=== PATIENT | female | born 1960 | race Caucasian/White ===

== ENCOUNTER 2022-07-03 18:29 | Inpatient (IN) | payer BC, SELFPAY ==
[2022-07-03] VITALS (23 sets, daily range): BP systolic 117–134; BP diastolic 58–77; PULSE 61–81; RESP 16–22; TEMP 36.4; O2SAT 94–99; BMI 26.9
--- NOTE | ~2022-07-03 | CT_ITS ---
EXAMINATION: CT abdomen pelvis wo con DATE: 07/04/2022 18:53 INDICATION: Abdominal pain and diarrhea TECHNIQUE: Computed tomography (CT) of the abdomen and pelvis was performed without intravenous contr ast. Automated exposure control and iterative reconstruction technique were employed. The dose-length product was 387.25 mGy-cm. COMPARISON: None FINDINGS: Minimal peripheral smooth septal line thickening at the bilateral lung bases consistent with minimal pulmonary edema. Very small bilateral pleural effusions. Arch size is normal. No pericardial or pleur al effusion. Dependent predominant gradient of increasing density in the otherwise normal-appearing g allbladder suggesting layering sludge. Liver, spleen, pancreas, bilateral adrenal glands and kidneys are normal. Normal appendix. No abnormal bowel wall thickening or obstruction. There are scattered mi ld mesenteric edema throughout the abdomen and pelvis along with a very small amount of ascites in th e cul-de-sac and along the anterior margin of the liver. No abscess or free intraperitoneal gas. Ther e is diffuse mild wall thickening of the bladder with haziness to the immediately adjacent fat which is suspicious for cystitis. Anteverted uterus and bilateral adnexa are unremarkable. Tiny fat-contain ing umbilical hernia. No pathologically enlarged abdominal or pelvic lymphadenopathy. Mild lumbar spo ndylosis. IMPRESSION: 1. Nonspecific mild anasarca with mild pulmonary and mesenteric edema with very small bilateral pleur al effusions and very small amount of ascites. Reviewed, dictated and finalized at location A. ING ASSISTANT IMPRESSION: 1. Nonspecific mild anasarca with mild pulmonary and mesenteric edema with very small bilateral pleural effusions and very small amount of ascites.
--- NOTE | ~2022-07-03 | XR_ITS ---
EXAMINATION: XR knee LT 2V DATE: 07/03/2022 21:52 INDICATION: Rash over the entire body post recent left total knee replacement TECHNIQUE: AP and lateral views of the left knee were obtained. COMPARISON: None. FINDINGS: Left total knee arthroplasty with patellar resurfacing appears well seated in near-anatomic alignment . No periprosthetic lucency to suggest loosening or infection. No fracture. Small enthesophytes at th e proximal pole of the patella. No joint effusion. Soft tissues are unremarkable. IMPRESSION: 1. Expected appearance of a left total knee arthroplasty. No acute osseous abnormality. Reviewed, dictated and finalized at location A. AL EDUCATOR IMPRESSION: 1. Expected appearance of a left total knee arthroplasty. No acute osseous abno rmality.
[2022-07-03] MEDS: LACTATED RINGERS 1,000 ML 999 ML IV CONT (19:18)
--- NOTE | 2022-07-03 19:23 | PC.NURSE ---
Patient report received from JULIO CESAR Hanna. Assumed care of patient at this time.
[2022-07-03 19:24] LABS: Basophils Percent Auto 0.5 % (0.2-1.2); Hematocrit 47.9 % (37.0-47.0); Hemoglobin 16.1 g/dL (12.0-15.0); Immature Granulocyte Absolute 0.03 K/mm3 (0.00-0.031); Immature Granulocyte Percent A 0.5 % (0-0.5); Lymphocytes Absolute Auto 0.65 K/mm3 (0.9-3.2); Lymphocytes Percent Auto 10.4 % (18.3-44.2); Mean Corpuscular HGB Conc 33.6 g/dl (32-36); Mean Corpuscular Hemoglobin 29.6 pg (26-34); Mean Corpuscular Volume 88.1 fl (80-100); Mean Platelet Volume 9.9 fl (7.4-10.4); Monocytes Absolute Auto 0.3 K/mm3 (0.1-0.6); Neutrophils Absolute Auto 5.3 K/mm3 (1.3-6.7); Neutrophils Percent Auto 84.6 % (45.5-73.1); Platelet Count Result 321 k/mm3 (150-375); Red Blood Count 5.44 M/mm3 (4.2-5.4); White Blood Count 6.3 K/mm3 (4.5-10.0)
--- NOTE | 2022-07-03 19:25 | ED.ALLEREA ---
HPI - Allergic Reaction General Chief complaint: Allergic Reaction <CACHORRO Garcia Last Filed: 07/04/22 00:52> Stated complaint: Allergic Reaction <CACHORRO Garcia Last Filed: 07/04/22 00:52> Time Seen by Provider: 07/03/22 18:58 <CACHORRO Garcia Last Filed: 07/04/22 00:52> History of Present Illness HPI narrative: Patient is a 62-year-old female here for evaluation of a rash. Patient first developed a rash last week. She was seen by her PCP and was given prednisone and Benadryl. She presented to the ED the next day in [place] due to worsening symptoms and was diagnosed with an allergic reaction, she received Decadron, Pepcid and Benadryl without relief. She was then given epi in the ED with improvement of her symptoms. Patient states that she was doing well until 3 days ago when the rash returned. She notes facial swelling around her eyelids and lips, swelling of her hands and feet, diffuse rash across her entire body, most notably over her flanks and abdomen. The rash is itchy and not painful. Patient did have numerous episodes of vomiting and diarrhea today; unable to tolerate PO, which prompted ED eval. She denies any fever, chills. She is unsure what she is allergic to, denies exposure to new medications. She did have a massage prior to onset of rash. <CACHORRO Garcia Last Filed: 07/04/22 00:52> Related Data Home medications: Home Medications Medication Instructions Recorded Confirmed levothyroxine 88 mcg tablet 88 mcg PO QAM 07/03/22 07/03/22 (Synthroid) <CACHORRO Garcia Last Filed: 07/04/22 00:52> Allergies/adverse reactions: Allergies Allergy/AdvReac Type Severity Reaction Status Date / Time amoxicillin Allergy Rash Verified 07/03/22 18:36 sulfamethoxazole Allergy Rash Verified 07/03/22 18:36 [From Bactrim] trimethoprim [From Bactrim] Allergy Rash Verified 07/03/22 18:36 <CACHORRO Garcia Last Filed: 07/04/22 00:52> Review of Systems Review of Systems: Gen.: Denies fevers or chills Eyes: Denies eye pain or visual change ENT: Denies congestion Respiratory: Denies shortness of breath or cough CV: Denies chest pain or palpitations GI: Reports nausea and vomiting. Denies abdominal pain or diarrhea denies burning, urgency, frequency or hematuria Musculoskeletal: Denies back pain or muscle pain Neuro: Denies numbness, tingling, weakness or focal weakness Skin: Reports rash Except as documented, all other systems reviewed and negative <Reshma Clark PA-C - Last Filed: 07/04/22 00:52> [facility] Past Medical History Medical History: Medical History Hypothyroidism (acquired) <CACHORRO Garcia Last Filed: 07/04/22 00:52> Surgical History Surgical History: Surgical History H/O section History of total left knee replacement S/P tonsillectomy and adenoidectomy <Reshma Clark PA-C - Last Filed: 07/04/22 00:52> Family History Family History: Family History Father Cancer Liver disease Mother Cancer <Reshma Clark PA-C - Last Filed: 07/04/22 00:52> Social History Social History: Social History (Updated 07/03/22 @ 22:41 by Cat Mccullough NP) Social History: The patient is and has 2 children. She seldom drinks alcohol. She has never smoked. She is a retired cardiac cath technician. Her is the durable power pathology specialist for healthcare. The patient resides in [place]. Code status full code. Smoking status: Never smoker Alcohol intake: current Drinks per week: 1 Substance use: never Lack of Transportation: No Lack of Food: Never True Current Housing: I Have Housing Concerned About Future Housing: No Diff
[2022-07-03 19:34] LABS: Chloride 99 mmol/L (98-107)
[2022-07-03 19:42] LABS: Alanine Aminotransferase 26 U/L (6-35); Albumin Level 3.8 g/dL (3.5-5.1); Alkaline Phosphatase 75 U/L (38-126); Anion Gap 5 mmol/L (8-16); Aspartate Amino Transferase 32 U/L (14-36); Bilirubin,Total 0.9 mg/dL (0.2-1.3); Blood Urea Nitrogen 21 mg/dL (7-17); CRP 6.9 mg/dL (<1.0); Calcium 8.3 mg/dL (8.4-10.2); Carbon Dioxide 29 mmol/L (22-30); Estimated CRCL calculation 43 ml/min; Estimated Glomerular Filt Rate 56; Glucose 130 mg/dL (65-110); Magnesium 1.7 mg/dL (1.6-2.3); Potassium 3.9 mmol/L (3.4-5.0); Sodium 133 mmol/L (137-145)
[2022-07-03 19:58] LABS: Erythrocyte Sedimentation Rate 1 mm/hr (0-20)
[2022-07-03 20:15] LABS: INR 1.1; Prothrombin Time 13.6 Seconds (11.1-14.7)
[2022-07-03 20:16] LABS: Partial Thromboplastin Time 26.2 SECONDS (22.3-36.8)
[2022-07-03] MEDS: DEXAMETHASONE SOD PHOS INJ 4 MG/ML VIAL IV PUSH (20:52)
[2022-07-03] MEDS: SODIUM CHLORIDE 0.9% IV 1,000 ML 999 ML IV CONT (20:53)
[2022-07-03] MEDS: diphenhydrAMINE HCl INJ 50 MG/ML VIAL 25 MG IV PUSH (20:53)
[2022-07-03] MEDS: ONDANSETRON INJ 4 MG/2 ML VIAL IV PUSH (21:08)
--- NOTE | 2022-07-03 21:20 | PM.IMHP ---
H&P: HPI History of Present Illness Date/Time: 07/03/22 21:20 Chief Complaint: Urticaria Narrative: This is a 62-year-old female patient who came to the emergency room for evaluation of a rash. The patient stated she 1st developed a rash last week. She was seen in the emergency room yesterday in [place] and has been on prednisone and was taking Benadryl. She stated she is also taking Pepcid. The patient stated that she does not have a sore throat but has had a dry ET throat for 3 days. The patient was given Decadron Pepcid and Benadryl without relief. She was given epinephrine in the ED on the without improvement of her symptoms. The patient stated she recently had a massage and he use some type of oil which may have caused her have an allergic reaction. She also tried a new deodorant. She has no fever or chills. She has not eaten anything differently than what she typically eats. In our emergency room today she was given lactated Ringer's, Zofran, Decadron, Benadryl, normal saline, and Zofran. X-ray of the left knee expected appearance of left total knee arthroplasty. No acute osseous abnormality. The patient recently had a left total knee arthroplasty a couple months ago. The patient stated that it has been warm since her surgery. H&H is 16.1 and 47.9. Neutrophils are elevated to 84.6. Sodium is 133. BUN 21 creatinine is normal. GFR is 56 glucose is 130. CRP is 6.9. Influenza a B and COVID are all negative and group a strep are pending. The patient is being admitted to observation status on the date of service of 07/03/2022. Review of Systems Review of Systems: See HPI All systems reviewed & are unremarkable except as noted in HPI and below Constitutional: Constitutional: Reports as per HPI and Reports no additional constitutional complaints Eyes: Eyes: Reports as per HPI and Reports no additional eye complaints ENT: Reports system reviewed and no additional complaints, except as documented and Reports Normal hearing present Cardiovascular: Cardiovascular: Reports no additional cardiovascular complaints Respiratory: Respiratory: Reports no additional respiratory complaints and Reports no additional respiratory complaints Gastrointestinal: Gastrointestinal: Reports as per HPI and Reports no additional gastrointestinal complaints Musculoskeletal: Musculoskeletal: Reports no additional musculoskeletal complaints Integumentary/Breasts: Skin/Breast: Reports system reviewed and no additional complaints, except as docu and Reports as per HPI Neurologic: Reports system reviewed and no additional complaints, except as documented, Reports as per HPI and Reports Normal hearing present Psychiatric: Psychiatric: Reports no additional psychiatric complaints and Reports as per HPI Endocrine: Endocrine: Reports no additional endocrine complaints Hematologic/Lymphatic: Hematologic/Lymphatic: Reports no additional hematologic/lymphatic complaints Allergic/Immunologic: Allergic/Immunologic: Reports no additional allergic/immunologic complaints PMFSH Past Medical History Medical History Hypothyroidism (acquired) Surgical History Surgical History H/O section History of total left knee replacement S/P tonsillectomy and adenoidectomy Family History Family History Father Cancer Liver disease Mother Cancer Social History Social History (Updated 07/03/22 @ 22:41 by Cat Mccullough NP) Social History: The patient is and has 2 children. She seldom drinks alcohol. She has never smoked. She is a retired environmental field technician. Her is the durable power photonics technician for healthcare. The patient resides in [place]. Code status full code. Smoking status: Never smoker Meds Home Medications and Allergies Allergies Allerg
[2022-07-03 22:13] LABS: Influenza A QL RT-PCR Negative (Negative); Influenza B QL RT-PCR Negative (Negative); SARS-CoV-2 RNA PCR Negative
--- NOTE | 2022-07-03 22:14 | PC.NURSE ---
Yamilex Tobias, patients family member leaves cell number of [phone] to call with updates. This nurse informed her of visiting hours and patients room number.
--- NOTE | 2022-07-03 22:25 | PC.NURSE ---
Attempted to call report at 0811, stated will call back.
--- NOTE | 2022-07-03 22:33 | PC.NURSE ---
2232 Attempted to call report again, informed RN will call back.
[2022-07-03 22:58] LABS: Strep Group A RT-PCR NOT DETECTED (Negative)
[2022-07-03] MEDS: methylPREDNISolone SOD SUCC 125 MG VIAL IV PUSH (23:12)
[2022-07-03] MEDS: SODIUM CHLORIDE 0.9% IV 1,000 ML 150 ML IV CONT (23:12)
[2022-07-03] MEDS: MAGNESIUM SULF 1 GM/D5W 100 ML 1 GM/100 ML BAG IVPB (23:12)
[2022-07-04] MEDS: diphenhydrAMINE HCl INJ 50 MG/ML VIAL IV PUSH ×2 (01:49→20:35)
[2022-07-04] MEDS: methylPREDNISolone SOD SUCC 125 MG VIAL 60 MG IV PUSH ×4 (05:37→23:04)
[2022-07-04 05:59] LABS: Basophils Percent Auto 0.2 % (0.2-1.2); Hematocrit 41.4 % (37.0-47.0); Hemoglobin 13.9 g/dL (12.0-15.0); Immature Granulocyte Absolute 0.02 K/mm3 (0.00-0.031); Immature Granulocyte Percent A 0.4 % (0-0.5); Lymphocytes Absolute Auto 0.51 K/mm3 (0.9-3.2); Lymphocytes Percent Auto 9.3 % (18.3-44.2); Mean Corpuscular HGB Conc 33.6 g/dl (32-36); Mean Corpuscular Hemoglobin 29.6 pg (26-34); Mean Corpuscular Volume 88.1 fl (80-100); Mean Platelet Volume 9.9 fl (7.4-10.4); Monocytes Absolute Auto 0.1 K/mm3 (0.1-0.6); Neutrophils Absolute Auto 4.8 K/mm3 (1.3-6.7); Neutrophils Percent Auto 88.1 % (45.5-73.1); Platelet Count Result 293 k/mm3 (150-375); Red Cell Distribution Width 12.6 % (11.5-14.5); White Blood Count 5.5 K/mm3 (4.5-10.0)
[2022-07-04 06:00] VITALS: BP 117/65; PULSE 76; RESP 16; TEMP 36.7; O2SAT 97
[2022-07-04 06:04] LABS: Lactic Acid Reflex 1.2 mmol/L (0.7-2.0)
[2022-07-04 06:07] LABS: Alanine Aminotransferase 21 U/L (6-35); Albumin Level 2.9 g/dL (3.5-5.1); Alkaline Phosphatase 54 U/L (38-126); Anion Gap 2 mmol/L (8-16); Aspartate Amino Transferase 25 U/L (14-36); Bilirubin,Total 0.5 mg/dL (0.2-1.3); Blood Urea Nitrogen 17 mg/dL (7-17); CRP 6.5 mg/dL (<1.0); Calcium 7.2 mg/dL (8.4-10.2); Carbon Dioxide 26 mmol/L (22-30); Chloride 102 mmol/L (98-107); Estimated CRCL calculation 53 ml/min; Estimated Glomerular Filt Rate > 60; Glucose 148 mg/dL (65-110); Potassium 3.7 mmol/L (3.4-5.0); Sodium 130 mmol/L (137-145)
[2022-07-04 06:40] LABS: Thyroid Stimulating Hormone Reflex 0.148 uIU/mL (0.465-4.68)
[2022-07-04 07:26] LABS: Free T4 Free Thyroxine Reflex 1.12 ng/dL (0.78-2.19)
[2022-07-04] MEDS: FAMOTIDINE 20 MG/2 ML VIAL IV PUSH ×2 (09:00→20:32)
[2022-07-04 09:30] LABS: Total Triiodothyronine (T3) 0.59 NG/ML (0.97-1.69)
[2022-07-04] MEDS: ONDANSETRON INJ 4 MG/2 ML VIAL IV PUSH (09:51)
[2022-07-04] MEDS: MORPHINE SULFATE (*CRX) 2 MG/ML INJ IV PUSH (12:16)
--- NOTE | 2022-07-04 13:21 | PM.IMPN ---
Progress Note: A&P Assessment and Plan (1) Rash of unknown cause: Code(s): R21 - Rash and other nonspecific skin eruption Status: Acute Assessment and Plan: Diffuse, reticular-lacy confluent rash, present on admission with associated facial/orbital swelling, abdominal pain and diarrhea. Appears to be secondary to immune-mediated allergic reaction given cutaneous and GI complaints. May be secondary to essential oils, new deodorant but etiology is not clear. No new medications taken. This may be secondary to an underlying autoimmune. Continue systemic steroids and add IV antihistamine BID. continue pepcid IV BID. WBC within normal limits. Afebrile. Blood cultures were drawn on admission and pending. CRP mildly elevated 6.5 Rapid strep negative. Does not appear to be related to bacterial infection. Hold antibiotics. may need to see a oyster bed worker outpatient elizalde. (2) Facial swelling: Code(s): R22.0 - Localized swelling, mass and lump, head Status: Acute Assessment and Plan: No respiratory compromise, stridor, wheezing, or hot potato voice. Presumed secondary to above. Continue systemic steroids and IV antihistamines. (3) Diarrhea: Code(s): R19.7 - Diarrhea, unspecified Status: Acute Assessment and Plan: with associated abdominal pain, diffuse; she has nausea but no emesis. CT abd/pelvis pending. Send stool cultures. No recent antibiotic use, but will check Cdiff culture. No known sick contacts. (4) Hypothyroidism (acquired): Code(s): E03.9 - Hypothyroidism, unspecified Status: Chronic Assessment and Plan: -continue levothyroxine and check thyroid level. TSH low, free T4 within normal limits, TT3 mildly low. Time Spent With Patient Time with patient: 15 - 25 minutes Subjective Date/time seen: 07/04/22 13:21 She reports that her eyes and face feel puffier today. She has mucous in her throat, but denies difficulty handling secretions, throat or tongue swelling, hot potato voice. The rash to her abdomen, anterior chest, and back is improving, however, she still has the rash to her arms, both thighs and feet. It is pruritic, but not painful. She has increased redness to both eyes. Additionally, she reports abdominal pain, nausea and diarrhea since Tuesday. No vision changes, pain with eye movements, joint pain, vomiting, or dysuria. No skin sloughing. She denies new medications, herbal supplements, sick contacts, new foods. She is active outdoors, but denies tick or insect bites. Her new deodorant is a natural, herbal preparation. Review of Systems Review of Systems: All systems reviewed & are unremarkable except as noted in HPI and below Exam Narrative: General: Mildly anxious appearing, older adult female lying in bed. HEENT: Normocephalic. Atraumatic. Sclera with red peripheral injection, right sclera edema, pupils equal and round. Slight maguire-like facies with edematous orbital lids. Mucous membranes dry. Oropharynx unremarkable and without lesions. Hearing intact. nares patent. Skin: Warm and dry. Lacy-reticular shaped lesions to bilateral anterior & posterior arms, anterior bilateral thighs, dorsal surface to bilateral feet, improving anterior and posterior trunk lesions. All lesions blanching. lesions pruritic. ? Neck: Supple. No lymphadenopathy. Trachea midline. No JVD. Heart: S1 and S2 regular rate and rhythm. No murmurs, gallops, or rubs auscultated. Chest: Respirations even and unlabored. Lung sounds are clear to auscultation in all lobes bilaterally without wheezes, rhonchi, or rales. No stridor. Abdomen: Soft, round and diffuse tenderness to palpation.? Bowel sounds present in all 4 quadrants. Extremities:? Grossly normal ROM all extremities. No edema, erythema or calf tenderness. Left healed TKA incision without drainage, redness or edema. Radial and dorsalis pedis pulses +2 bilaterally. Neurological: No focal deficits. Cranial nerves
[2022-07-04 14:00] VITALS: BP 111/59; PULSE 64; RESP 16; TEMP 36.2; O2SAT 96
[2022-07-04] MEDS: KCL 20MEQ/0.9% SOD CHL 1,000 ML 100 ML IV CONT (15:26)
[2022-07-04] MEDS: diphenhydrAMINE HCl INJ 50 MG/ML VIAL 25 MG IV PUSH (17:02)
[2022-07-04 20:14] VITALS: BP 133/63; PULSE 68; RESP 18; TEMP 36.9; O2SAT 94
[2022-07-04] MEDS: FUROSEMIDE INJ 40 MG/4 ML VIAL 10 MG IV PUSH (20:54)
[2022-07-05] MEDS: LEVOTHYROXINE SODIUM 88 MCG TABLET PO (05:01)
[2022-07-05] MEDS: methylPREDNISolone SOD SUCC 125 MG VIAL 60 MG IV PUSH ×3 (05:01→18:27)
[2022-07-05 05:21] VITALS: BP 120/71; PULSE 70; RESP 18; TEMP 36.6; O2SAT 94
[2022-07-05 05:32] LABS: Basophils Percent Auto 0.1 % (0.2-1.2); Hematocrit 38.9 % (37.0-47.0); Hemoglobin 12.7 g/dL (12.0-15.0); Immature Granulocyte Absolute 0.03 K/mm3 (0.00-0.031); Immature Granulocyte Percent A 0.4 % (0-0.5); Lymphocytes Absolute Auto 0.57 K/mm3 (0.9-3.2); Lymphocytes Percent Auto 8.4 % (18.3-44.2); Mean Corpuscular HGB Conc 32.6 g/dl (32-36); Mean Corpuscular Hemoglobin 28.9 pg (26-34); Mean Corpuscular Volume 88.4 fl (80-100); Mean Platelet Volume 9.8 fl (7.4-10.4); Monocytes Absolute Auto 0.2 K/mm3 (0.1-0.6); Neutrophils Absolute Auto 5.9 K/mm3 (1.3-6.7); Neutrophils Percent Auto 88.1 % (45.5-73.1); Platelet Count Result 285 k/mm3 (150-375); Red Cell Distribution Width 12.9 % (11.5-14.5); White Blood Count 6.8 K/mm3 (4.5-10.0)
[2022-07-05 05:54] LABS: Alanine Aminotransferase 23 U/L (6-35); Albumin Level 2.9 g/dL (3.5-5.1); Alkaline Phosphatase 52 U/L (38-126); Anion Gap 3 mmol/L (8-16); Aspartate Amino Transferase 24 U/L (14-36); Bilirubin,Total 0.4 mg/dL (0.2-1.3); Blood Urea Nitrogen 21 mg/dL (7-17); CRP 3.9 mg/dL (<1.0); Calcium 7.6 mg/dL (8.4-10.2); Carbon Dioxide 25 mmol/L (22-30); Chloride 102 mmol/L (98-107); Estimated CRCL calculation 44 ml/min; Estimated Glomerular Filt Rate 50; Glucose 142 mg/dL (65-110); Potassium 3.8 mmol/L (3.4-5.0); Sodium 130 mmol/L (137-145)
[2022-07-05 06:38] LABS: Erythrocyte Sedimentation Rate 5 mm/hr (0-20)
[2022-07-05 08:10] LABS: Toxigenic C. Diff NEGATIVE (NEGATIVE)
[2022-07-05] MEDS: diphenhydrAMINE HCl INJ 50 MG/ML VIAL 25 MG IV PUSH (08:35)
[2022-07-05] MEDS: FAMOTIDINE 20 MG/2 ML VIAL IV PUSH ×2 (08:35→20:44)
--- NOTE | 2022-07-05 11:30 | PM.IMPN ---
Progress Note: A&P Assessment and Plan (1) Allergic reaction: Qualifiers: Encounter type: initial encounter Qualified Code(s): T78.40XA - Allergy, unspecified, initial encounter Code(s): T78.40XA - Allergy, unspecified, initial encounter Status: Acute Assessment and Plan: Severe, systemic allergic reaction to unknown cause without anaphylaxis Diffuse, reticular-lacy confluent rash, present on admission with associated facial/orbital swelling, abdominal pain and diarrhea. Likely secondary to immune-mediated allergic reaction given cutaneous and GI complaints. May be secondary to essential oils, new deodorant but etiology is not clear. No new medications taken. Improving on steroids and antihistamines. Continue IV solu-medrol and increased IV benadryl 50 mg BID for additional 24-48 hours before transitioning to oral medications as she was on these medications prior to admission and her symptoms worsened . continue pepcid IV BID. WBC within normal limits. Afebrile. Blood cultures negative to date. Does not appear to be related to bacterial infection. Hold antibiotics. CRP mildly elevated 6.5 on admission and trending down 3.9 Rapid strep negative. Consider outpatient allergy testing after discharge. Patient is from [place] and we discussed finding a Ob Tech near her home. She should be discharged on prednisone taper and Epi pen. (2) Rash of unknown cause: Code(s): R21 - Rash and other nonspecific skin eruption Status: Acute Assessment and Plan: As above. Add hydrocortisone 1% cream for pruritus. (3) Facial swelling: Code(s): R22.0 - Localized swelling, mass and lump, head Status: Acute Assessment and Plan: No respiratory compromise, stridor, wheezing, or hot potato voice. Presumed secondary systemic allergic reaction and improving. Add refresh eye drops. (4) Diarrhea: Qualifiers: Diarrhea type: unspecified type Qualified Code(s): R19.7 - Diarrhea, unspecified Code(s): R19.7 - Diarrhea, unspecified Status: Acute Assessment and Plan: with associated abdominal pain, diffuse; she has nausea but no emesis. CT abd/pelvis shows no acute intra-abdominal infection. mild ascites/anasarca, mild pulmonary and mesenteric edema that would be consistent with systemic allergic reaction and vascular permeability. Cdiff negative. stool cultures and O&P pending. No known sick contacts or new foods. (5) Hypothyroidism (acquired): Code(s): E03.9 - Hypothyroidism, unspecified Status: Chronic Assessment and Plan: -continue levothyroxine and check thyroid level. TSH low, free T4 within normal limits, TT3 mildly low. Plan Continue IV medications x 24-48 hours until more significant improvement, then transition to PO at discharge. Time Spent With Patient Time with patient: 25 - 35 minutes (>50% time spent discussing plan of care and answering patient/family questions) Subjective Date/time seen: 07/05/22 11:30 Interval history: She feels a little better today. The rash is still present and widespread; it is more prominent after applying lotion, per daughter, and still pruritic. She had some loose stool and abdominal cramping after eating today. She still has facial swelling that is somewhat improved, but still significantly edmatous. No nausea, vomiting, tongue swelling, drooling, vision changes, pain with eye movements, difficulty breathing or wheezing. Review of Systems Review of Systems: All systems reviewed & are unremarkable except as noted in HPI and below Exam Narrative: General: No acute distress. Lying in bed. HEENT: Sclera with red injection, right sclera edema improving, pupils equal and round. improving facial edema and swelling to orbital lids. Mucous membranes dry. Oropharynx unremarkable and without lesions. Hearing intact. nares patent. Skin: Warm and dry. Resolved reticular appearance t
[2022-07-05] MEDS: ARTIFICIAL TEARS OPHTH SOLN 15 ML BOTTLE 1 DROP EACH EYE ×3 (12:27→20:44)
[2022-07-05 14:00] VITALS: BP 133/64; PULSE 64; RESP 16; TEMP 36.8; O2SAT 94
[2022-07-05] MEDS: diphenhydrAMINE HCl INJ 50 MG/ML VIAL IV PUSH ×2 (18:27→20:44)
[2022-07-05 20:23] VITALS: BP 121/62; PULSE 65; RESP 18; TEMP 37.2; O2SAT 94
[2022-07-05] MEDS: HYDROCORTISONE 1% 30 GM CREAM 1 APPLIC TOPICAL (20:44)
[2022-07-06] MEDS: methylPREDNISolone SOD SUCC 125 MG VIAL 60 MG IV PUSH ×3 (00:32→13:42)
[2022-07-06 04:28] VITALS: BP 120/65; PULSE 88; RESP 18; TEMP 36.1; O2SAT 93
[2022-07-06] MEDS: LEVOTHYROXINE SODIUM 88 MCG TABLET PO (05:59)
[2022-07-06 06:09] LABS: Hematocrit 34.2 % (37.0-47.0); Hemoglobin 11.4 g/dL (12.0-15.0); Mean Corpuscular HGB Conc 33.3 g/dl (32-36); Mean Corpuscular Hemoglobin 29.3 pg (26-34); Mean Corpuscular Volume 87.9 fl (80-100); Mean Platelet Volume 9.6 fl (7.4-10.4); Platelet Count Result 222 k/mm3 (150-375); Red Blood Count 3.89 M/mm3 (4.2-5.4); Red Cell Distribution Width 12.8 % (11.5-14.5); White Blood Count 5.7 K/mm3 (4.5-10.0)
[2022-07-06 06:20] LABS: Chloride 99 mmol/L (98-107)
[2022-07-06 06:33] LABS: Anion Gap 3 mmol/L (8-16); Blood Urea Nitrogen 21 mg/dL (7-17); Calcium 7.5 mg/dL (8.4-10.2); Carbon Dioxide 27 mmol/L (22-30); Estimated CRCL calculation 53 ml/min; Estimated Glomerular Filt Rate > 60; Glucose 163 mg/dL (65-110); Magnesium 2.3 mg/dL (1.6-2.3); Potassium 3.5 mmol/L (3.4-5.0); Sodium 129 mmol/L (137-145)
[2022-07-06] MEDS: ARTIFICIAL TEARS OPHTH SOLN 15 ML BOTTLE 1 DROP EACH EYE ×2 (08:48→13:43)
[2022-07-06] MEDS: FAMOTIDINE 20 MG/2 ML VIAL IV PUSH (08:49)
[2022-07-06] MEDS: diphenhydrAMINE HCl INJ 50 MG/ML VIAL IV PUSH (08:49)
[2022-07-06 13:27] LABS: Alanine Aminotransferase 80 U/L (6-35); Albumin Level 2.7 g/dL (3.5-5.1); Alkaline Phosphatase 50 U/L (38-126); Aspartate Amino Transferase 77 U/L (14-36); Bilirubin,Total 0.3 mg/dL (0.2-1.3)
--- NOTE | 2022-07-06 14:54 | PM.DS ---
DS: Admitting Diagnosis Discharge Date 07/06/2022 1454 Admitting Diagnosis Erythema multiforme DS: Discharge Diagnosis Discharge Diagnosis (1) Allergic reaction: Qualifiers: Encounter type: initial encounter Qualified Code(s): T78.40XA - Allergy, unspecified, initial encounter Code(s): T78.40XA - Allergy, unspecified, initial encounter Status: Acute Assessment and Plan: Severe, systemic allergic reaction to unknown cause without anaphylaxis. Diffuse, reticular-lacy confluent rash, present on admission with associated facial/orbital swelling, abdominal pain and diarrhea. Likely secondary to immune-mediated allergic reaction given cutaneous and GI complaints. May be secondary to essential oils, new deodorant but etiology is not clear. No new medications taken. Treated with IV solumedrol Q6 hours and IV benadryl 50 mg BID and PRN for 48 hours Treated with pepcid IV BID. WBC within normal limits. Afebrile. Blood cultures negative to date. Does not appear to be related to bacterial infection. No antibiotics given. CRP mildly elevated 6.5 on admission and trended down by discharge. Rapid strep negative. Consider outpatient allergy testing after discharge. Patient is from [place] and we discussed finding a Manufacturing Weaver near her home. She should be discharged on prednisone taper 60 mg x 2 days, 50 mg x 2 days, 40 mg x 2 days, 30 mg x 2 days, 20 mg x 2 days, 10 mg x 2 days, then stop and benadryl 50 mg PO BID to TID Discharged with Epi pen. (2) Rash of unknown cause: Code(s): R21 - Rash and other nonspecific skin eruption Status: Acute Assessment and Plan: As above. Added hydrocortisone 1% cream for pruritus minimally effective, however. (3) Facial swelling: Code(s): R22.0 - Localized swelling, mass and lump, head Status: Acute Assessment and Plan: No respiratory compromise, stridor, wheezing, or hot potato voice. Presumed secondary systemic allergic reaction and improving. Added refresh eye drops for dry eyes (4) Diarrhea: Qualifiers: Diarrhea type: unspecified type Qualified Code(s): R19.7 - Diarrhea, unspecified Code(s): R19.7 - Diarrhea, unspecified Status: Acute Assessment and Plan: with associated abdominal pain, diffuse; she has nausea but no emesis. CT abd/pelvis shows no acute intra-abdominal infection. mild ascites/anasarca, mild pulmonary and mesenteric edema that would be consistent with systemic allergic reaction and vascular permeability. Cdiff negative. stool cultures- e.coli, salmonella, campylobacter, cryptospiridium, and giardia negative. O&P negative. No known sick contacts or new foods. (5) Hypothyroidism (acquired): Code(s): E03.9 - Hypothyroidism, unspecified Status: Chronic Assessment and Plan: -continue levothyroxine and check thyroid level. TSH low, free T4 within normal limits, TT3 mildly low. Likely secondary to acute illness. Repeat thyroid panel in 4 weeks after systemic illness resolved. DS: Summary Hospital Course Reason for hospitalization: [facility] Course: Hilda Tobias is a 62-year-old female patient who presented to the emergency room for evaluation of a whole body rash, which developed the week prior to admission.? She was seen in the emergency room in [place] 24 hours prior and prescribed PO prednisone, Benadryl, and Pepcid.? Her symptoms did not improve on oral medications, prompting her visit. She denied sore throat, but endorsed dry throat for 3 days.? She was also given epinephrine in the ED on the 07/02/22 without improvement of her symptoms.? She reported massage with unknown type of oil 1-2 days prior to symptoms.? She also tried a new natural deodorant.? She denied fever or chills.? No new medications or foods. In our emergency room, her vitals were stable. CBC, CMP were unremarkable. CRP was mildly elevated 6.9. Influenza A/B, COVID19, and
== END 2022-07-06 15:40 | disposition home or self-care (01) | DRG 916 ==
LOC: ANHED 20:54 → ANH3MED 22:12
PROVIDERS: Nurse Practitioner; Physician Assistant; Admitting Provider Internal Medicine; Emergency Provider Emergency Medicine; Visit Provider Nurse Practitioner Family
DX: T78.40XA Allergy, unspecified, initial encounter (principal); Z20.822 Contact with and (suspected) exposure to COVID-19; R19.7 Diarrhea, unspecified; E03.9 Hypothyroidism, unspecified; Z96.652 Presence of left artificial knee joint
CPT/HCPCS: 36415; 73560; 74176; 80048; 80053; 80076; 83605; 83735; 84439; 84443; 84480; 85025; 85027; 85610; 85652; 85730; 86140; 87040; 87045; 87177; 87209; 87269; 87272; 87427; 87493; 87636; 87651; 96361; 96374; 96375; 96376; 99285; A9270; G0378; J1100; J1200; J1940; J2270; J2405; J2930; J3475; J3480; J7030; J7120